=== PATIENT | female | born 1970 | race Caucasian/White ===

== ENCOUNTER 2017-07-31 18:46 | Emergency (ER) | payer MEDICAID ==
[~2017-07-31] VITALS: Ht 165.1 cm; Wt 65.8 kg
[2017-07-31 19:42] VITALS: BP 150/70
--- NOTE | 2017-07-31 20:39 | NUR ---
pt bib family TOOTHACHE FOR A WEEK. er md to desi, all order executed. Pupils equal and reactive to light bilaterally. No facial droop noted. No smile deficit noted. Speech normal for patient. Patient is alert and oriented to person, place, time and event. Bilateral hand tar pot man equal. Bilateral foot push equal.
[2017-07-31] MEDS ORDERED: cefTRIAXone 1,000 MG in LIDOCAINE 1% ED 2.1 ML IM ONE (20:45)
[2017-07-31] MEDS ORDERED: KETOROLAC 60 MG/2 ML VIAL IM ONE (20:45)
[2017-07-31 21:27] VITALS: BP 140/68
--- NOTE | 2017-07-31 21:31 | NUR ---
Patient discharged with v/s stable. Written and verbal after care instructions given and explained. Patient alert, oriented and verbalized understanding of instructions. Ambulatory with steady gait. All questions addressed prior to discharge. ID band removed. Patient advised to follow up with PMD. Rx of ibu 800mg, peridex 0.12%,cephalexin 500mg qid given. Patient educated on indication of medication including possible reaction and side effects. Opportunity to ask questions provided and answered.
== END 2017-07-31 21:27 | disposition home or self-care (01) ==
LOC: MED 18:46
DX: K04.7 Periapical abscess without sinus (principal)
CPT/HCPCS: 96372; 99284; J0696; J1885; J2001

== ENCOUNTER 2017-08-27 22:12 | Emergency (ER) | payer MEDICAID ==
--- NOTE | 2017-08-27 22:25 | NUR ---
PATIENT LEFT WITHOUT BEING SEEN BY DR. GRIDER. NO FURTHER CARE PROVIDED FOR PATIENT.PATIENT JUST D/C , TO REFILL THE PRESCRIBED MEDICATIONS
== END 2017-08-27 22:25 | disposition left against medical advice (07) ==
LOC: MED 22:12
DX: K08.89 Other specified disorders of teeth and supporting structures (principal); Z53.21 Procedure and treatment not carried out due to patient leaving prior to being seen by health care provider

== ENCOUNTER 2017-09-17 16:05 | Emergency (ER) | payer MEDICAID ==
[~2017-09-17] VITALS: Ht 162.6 cm; Wt 59.0 kg
[2017-09-17 16:42] VITALS: BP 135/86
--- NOTE | 2017-09-17 16:45 | NUR ---
Patient ambulated to bed 08.
--- NOTE | 2017-09-17 16:52 | NUR ---
Dr. Hernandez evaluating patient at bedside.
--- NOTE | 2017-09-17 16:54 | NUR ---
Janis horne in [facility] - 09/17/17 at 1655 by WAN Patient to bed 08.
[2017-09-17] MEDS ORDERED: KETOROLAC 60 MG/2 ML VIAL IM ONE (16:55)
[2017-09-17 17:22] VITALS: BP 132/88
--- NOTE | 2017-09-17 17:22 | NUR ---
Patient discharged with v/s stable. Written and verbal after care instructions given and explained. Patient alert, oriented and verbalized understanding of instructions. Ambulatory with steady gait. All questions addressed prior to discharge. ID band removed. Patient advised to follow up with PMD. Rx of MOTRIN AND NORCO given. Patient educated on indication of medication including possible reaction and side effects. Opportunity to ask questions provided and answered.
== END 2017-09-17 17:22 | disposition home or self-care (01) ==
LOC: MED 16:05
DX: K08.89 Other specified disorders of teeth and supporting structures (principal); E11.9 Type 2 diabetes mellitus without complications
CPT/HCPCS: 96372; 99283; J1885